=== PATIENT | female | born 1985 | race African-American/Black ===

== ENCOUNTER 2021-07-13 17:48 | Emergency (ER) | payer OTHER ==
[~2021-07-13] VITALS: Ht 165.1 cm; Wt 85.0 kg
[~2021-07-13 17:48] MED LIST: ADVIL
[2021-07-13 17:56] VITALS: BP 140/90
[2021-07-13] MEDS ORDERED: METH-653 MT (22:16)
[2021-07-13] MEDS ORDERED: ACET-2708 MT (22:16)
== END 2021-07-13 22:30 | disposition home or self-care (01) ==
LOC: ER 17:48
DX: M54.89 Other dorsalgia (principal)
CPT/HCPCS: 99281; 99283

== ENCOUNTER 2022-09-27 18:30 | Emergency (ER) | payer SELFPAY ==
[~2022-09-27] VITALS: Ht 152.4 cm; Wt 64.0 kg
[~2022-09-27 18:30] MED LIST changes: +ACET-2708 MT; +METH-653 MT
[2022-09-28] MEDS ORDERED: KETOROLAC 30MG/ML VIAL IV ONE (00:30)
[2022-09-28] MEDS ORDERED: SODIUM CHLORIDE 0.9% 1,000 ML IV ONE (00:30)
[2022-09-28 01:13] VITALS: BP 132/71
[2022-09-28 01:25] LABS: BASOPHILS % 0.2 % (0.0-2.0); EOSINOPHILS % 0.9 % (0.0-5.0); HEMATOCRIT. 39.8 % (36.0-48.0); HEMOGLOBIN. 12.9 g/dL (12.0-16.0); LYMPHOCYTES % 31.1 % (20.0-50.0); MEAN CORPUSCULAR HEMOGLOBIN 27.2 pg (28.0-32.0); MEAN CORPUSCULAR VOLUME 84.1 fL (81.0-99.0); MEAN PLATELET VOLUME 10.7 fl (7.4-10.4); MONOCYTES % 4.5 % (2.0-8.0); NEUTROPHILS % 63.3 % (40.0-76.0); PLATELET 125 x1000/uL (130-400); RED BLOOD CELL COUNT 4.73 mill/uL (4.2-5.4); RED CELL DISTRIBUTION WIDTH 14.7 % (11.6-14.6)
[2022-09-28 01:27] LABS: CLARITY URINE CLEAR (CLEAR); COLOR URINE YELLOW (YELLOW); KETONES URINE TRACE (NEGATIVE); LEUKOCYTE ESTERASE URINE NEGATIVE (NEGATIVE); NITRITE URINE NEGATIVE (NEGATIVE); OCCULT BLOOD URINE NEGATIVE (NEGATIVE); PROTEIN URINE TRACE (NEGATIVE); SPECIFIC GRAVITY URINE 1.031 (1.005-1.030)
[2022-09-28 02:10] LABS: CHLORIDE 108 mEq/L (98-107)
[2022-09-28 02:32] LABS: HCG SCREEN NEGATIVE
[2022-09-28] MEDS ORDERED: IBUP-2029 MT (03:51)
== END 2022-09-28 04:36 | disposition home or self-care (01) ==
LOC: ER 18:30
DX: R51.9 Headache, unspecified (principal); R42 Dizziness and giddiness
CPT/HCPCS: 36415; 70450; 71045; 80053; 81003; 81025; 82962; 84484; 84703; 85025; 93005; 96374; 99285; J1885; J7030; Z7610